=== PATIENT | male | born 1990 | race Caucasian/White ===

== ENCOUNTER 2018-10-11 19:22 | Emergency (ER) | payer OTHER, SELFPAY ==
[2018-10-11 19:23] VITALS: BP 156/82; PULSE 76; RESP 16; TEMP 35.7; BMI 38.0
--- NOTE | 2018-10-11 19:40 | RAD_ITS ---
STUDY: X-RAY - RIGHT HAND REASON FOR EXAM: Male, 28 years old. Laceration to hand. Assess for foreign body. TECHNIQUE: 3 view(s) of the hand. COMPARISON: None. FINDINGS: Normal radiocarpal articulation. Normal distal radioulnar joint. Normal visualized carpal bones. Normal carpal articulations Normal carpometacarpal articulation of the thumb. Normal second through fifth carpometacarpal joints. Normal metacarpi. Normal metacarpophalangeal joint of the thumb. Normal interphalangeal joint of the thumb. Normal proximal and distal phalanges of the thumb. Normal metacarpophalangeal joints of the second through fifth fingers. Normal proximal and distal interphalangeal joints of the second through fifth fingers. Normal phalanges of the second through fifth fingers. The soft tissue structures are unremarkable. RAD/Hand Min 3 Views IMPRESSION: No foreign body identified. Electronically Signed: Jennifer Avalos MD at 20:22 EST Tel , Service support ,
--- NOTE | 2018-10-11 21:05 | ED.VISSUMM ---
- ER Visit Summary Date of Service: 10/11/18 Chief Complaint: [Laceration right hand] History of Present Illness: The patient is a 28 M [presents to the emergency department complaint laceration to his right hand that started when he was cleaning a glass today. Patient is right-hand dominant. Patient is up-to-date on tetanus.] Physical Examination: [Right hand-patient has a 3 cm laceration noted over the dorsum of the right hand between the first and second metacarpals. Neurovascular intact distally. Patient has normal range of motion of all digits in flexion and extension. Patient has normal sensation.] Test Results: [X-rays of the right hand obtained showed no evidence for foreign body] Emergency Department Course and Treatment: [Laceration repair-wound sterilely draped and prepped. Wound cleansed with Shur-Clens and irrigated with copious saline. Wound anesthetized locally with 1% lidocaine total of 5 cc. Wound was explored and no foreign bodies noted within the wound. I do not appreciate any tendon lacerations. Patient is noted to have lacerated into part of the muscle belly that was bleeding relatively briskly therefore using 5-0 Vicryl I placed 1 suture to obtain good hemostasis. Patient then had 4 single interrupted sutures placed with 4-0 nylon to close the skin. Patient tired procedure well. Clean dressing applied.] Treatment Plan: [Follow-up with primary care physician in 10 days for suture removal] Disposition: [Discharged home in stable condition. Patient advised to return if increasing pain, redness, swelling, purulent drainage, or condition should worsen anyway. At this point to the best of my ability I do not believe he has any remaining foreign body however he is cautioned that it is possible that we may not see glass on an x-ray and I certainly was unable to visualize or probe any glass within the wound.] Impression: [Laceration right hand 3 cm-simple repair] This note was generated with [email or web address] dictation software. It may contain incorrect words, spelling, and punctuation that were not noted in review of the chart prior to signing ED Disposition - Plan for ED Patient: Chief Complaint: Laceration Referrals: Care Physician,No Primary [Primary Care Provider] -
--- NOTE | 2018-10-11 21:08 | ED.DCSUM_ITS ---
- ER Visit Summary Date of Service: 10/11/18 Chief Complaint: [Laceration right hand] History of Present Illness: The patient is a 28 M [presents to the emergency department complaint laceration to his right hand that started when he was cleaning a glass today. Patient is right-hand dominant. Patient is up-to-date on tetanus.] Physical Examination: [Right hand-patient has a 3 cm laceration noted over the dorsum of the right hand between the first and second metacarpals. Neurovas cular intact distally. Patient has normal range of motion of all digits in flexion and extension. Patient has normal sensation.] Test Results: [X-rays of the right hand obtained showed no evidence for foreign body] Emergency Department Course and Treatment: [Laceration repair-wound sterilely draped and prepped. Wound cleansed with Shur-Clens and irrigated with copious saline. Wound anesthetized locally with 1% lidocaine total of 5 cc. Wound was explored and no foreign bodies noted within the wound. I do not appreciate any tendon lacerations. Patient is noted to have lacerated into part of the muscle belly that was bleeding relatively briskly therefore using 5-0 Vicryl I placed 1 suture to obtain good hemostasis. Patient then had 4 single interrupted sutures placed with 4-0 nylon to close the skin. Patient tired procedure well. Clean dressing applied.] Treatment Plan: [Follow-up with primary care physician in 10 days for suture removal] Disposition: [Discharged home in stable condition. Patient advised to return if increasing pain, redness, swelling, purulent drainage, or condition should worsen anyway. At this point to the best of my ability I do not believe he has any remaining foreign body however he is cautioned that it is possible that we may not see glass on an x-ray and I certainly was unable to visualize or probe any glass within the wound.] Impression: [Laceration right hand 3 cm-simple repair] This note was generated with [employer] dictation software. It may contain incorrect words, spelling, and punctuation that were not noted in review of the chart prior to signing ED Disposition - Plan for ED Patient: Chief Complaint: Laceration Referrals: Care Physician,No Primary [Primary Care Provider] -
--- NOTE | 2018-10-11 21:08 | ED.DEP ---
ED Disposition - Plan for ED Patient: Chief Complaint: Laceration Instructions: ED Laceration Hand Referrals: Care Physician,No Primary [Primary Care Provider] - Rocky Roberts DO [NON CLINICAL AFFILIATE] - 10 Day for suture removal
== END 2018-10-11 21:47 | disposition home or self-care (01) ==
LOC: ED 19:44
PROVIDERS: Emergency Provider Emergency Medicine
DX: S61.411A Laceration without foreign body of right hand, initial encounter (principal); Z72.0 Tobacco use; W25.XXXA Contact with sharp glass, initial encounter; Y93.G1 Activity, food preparation and clean up; Y99.8 Other external cause status; Y92.000 Kitchen of unspecified non-institutional (private) residence as the place of occurrence of the external cause
CPT/HCPCS: 12042; 73130; 99283

== ENCOUNTER 2021-08-03 17:07 | Emergency (ER) | payer SELFPAY ==
[2021-08-03 17:08] VITALS: BP 143/83; PULSE 70; RESP 15; TEMP 37.4; BMI 29.5
--- NOTE | 2021-08-03 18:42 | EDS_ITS ---
HPI History of Present Illness Chief Complaint: Dental Informant: patient Onset/Context/Timing Onset: Month(s) Context: Gradual Onset Timing: Continuous Current Severity: Mild Maximum Severity: Mild Associated Symptoms Assocated Symptom - Dental: face swelling, cold sensitivity and hot sensitivity Narrative Narrative: 31-year-old male said he had bad upper teeth for months. He has a dentist he can follow-up with. He states has had more pain and some mild facial swelling and thinks it is infected now. He denies any recent trauma. Prior similar symptoms: Yes Recent Illness/Hospitalization: No PFSH PFSH Home Medications penicillin V potassium 500 mg PO 4X/DAY #40 tab 08/03/21 [Rx Last Taken Unknown] Allergy/AdvReac Type Severity Reaction Status Date / Time No Known Allergies Allergy Verified 08/03/21 17:08 Social History Smoking Status: Current every day smoker tobacco type: cigarettes ROS ROS ED ROS Narrative Denies recent illness. Review of Systems ROS Unobtainable: Denies due to encephalopathy Constitutional Constitutional ED: Denies chills or fever(s) Eyes Eyes: Denies change in vision ENT ENT ED: Denies ear pain or sore throat Cardiovascular Cardiovascular: Denies chest pain Respiratory/Chest Respiratory/Chest: Denies cough or dyspnea Gastrointestinal Gastrointestinal: Denies abdominal pain, diarrhea, nausea or vomiting Genitourinary Genitourinary ED: Denies dysuria Musculoskeletal Musculoskeletal: Denies myalgias Integumentary Denies rash Neurologic Neurologic: Denies headache(s) Psychiatric Psychiatric: Denies depression Endocrine Endocrinology: Denies polyuria Hematologic/Lymphatic Hematologic/Lymphatic: Denies easy bruising Allergic/Immunologic Allergic/Immunologic ED: Denies urticaria EXAM Physical Exam Narrative Exam Narrative: 31-year-old male no acute distress vital signs stable afebrile. Multiple areas of dental decay and cavities and eroded dentition. No significant gingivitis no gingival abscess. No trouble swallowing or breathing. No stridor. Floor is his mouth is nontender nonswollen. Neck is nontender no lymphadenopathy otherwise exam unremarkable. No significant facial swelling. Const Vital Signs: 08/03/21 17:08 Temperature 99.4 F H Temperature Source Temporal Pulse Rate 70 Respiratory Rate 15 Blood Pressure 143/83 H Blood Pressure Mean 103 Positive well nourished and well developed General Appearance ED: well developed and NAD HEENT Negative for trauma or tenderness Eyes PERRL and EOMs intact bilaterally Neck no lymphadenopathy, supple and no JVD General: normal visual inspection; Negative for anterior neck swelling or tenderness Lymph Lymphatic: no lymphadenopathy noted; Negative for lymphadenopathy Chest Wall inspection of chest normal and palpation of chest normal Resp normal respiratory effort and clear to auscultation bilaterally Cardio regular rate, regular rhythm, S1 normal heart sound, S2 normal heart sound and no murmurs GI normal to inspection, nondistended, normoactive bowel sounds, non-tender, non- distended and no masses Palpation: soft Back/Spine no CVA tenderness Extremity normal to inspection and no joint enlargement General Extremety ED: Negative for edema General Extremity: Negative for edema Neuro oriented x3, moves all extremities and no focal motor deficits Sensorium / Orientation: alert, oriented to person, oriented to place and oriented to time; Negative for orientation impaired Motor Exam: strength 5/5 throughout Psych mental status grossly normal Mood & Affect: Negative for depressed or tearful Skin no rashes or lesions noted MDM MDM MDM Narrative Medical decision making narrative: Male with dental decay and infection. Multiple cavities. To be placed on Pen-Vee K. Given his first dose in ER. Follow-up with his dentist. Discharge Plan Triage Chief Complaint: Dental ED Provider: Angel Arndt Dx/Rx/DC Orders Clinical Impression: Dental cavities Instructions: ED Dental Cavity Prescriptions: New penicillin V potassium 500 mg tablet 500 mg PO 4X/DAY Qty: 40 RF: 0 Primary Care Provider: Care Physician,No Primary Referrals: Care Physician,No Primary [Primary Care Provider] - Activity Restrictions/Additional Instructions: Follow-up with your dentist soon as possible. Warm salt water gargling. Antibiotic 1 pill 4 times a day till gone. Motrin and Tylenol for pain. Disposition Disposition: Home, Self Care
[2021-08-03] MEDS: Penicillin Vk 250 MG Tablet 500 MG PO (18:51)
[2021-08-03 18:53] VITALS: PULSE 97; RESP 16; O2SAT 99
--- NOTE | 2021-08-03 18:54 | ED.RN ---
THIS NURSE REVIEWED D/C INSTRUCTIONS WITH PT. PT VERBALIZED UNDERSTANDING OF INSTRUCTIONS. PT DENIES FURTHER NEEDS OR QUESTIONS AT THIS TIME
== END 2021-08-03 18:55 | disposition home or self-care (01) ==
PROVIDERS: Emergency Provider Emergency Medicine
DX: K02.9 Dental caries, unspecified (principal); F17.210 Nicotine dependence, cigarettes, uncomplicated
CPT/HCPCS: 99283